=== PATIENT | female | born 1990 | race Caucasian/White ===

== ENCOUNTER 2016-07-13 13:41 | Emergency (ER) | payer OTHER ==
[~2016-07-13] VITALS: Ht 157.5 cm; Wt 75.0 kg
[2016-07-13 13:42] VITALS: BP 119/73; PULSE 104; RESP 16; TEMP 97.8; O2SAT 100
[2016-07-13] MEDS ORDERED: QUET1TAB10 PO (14:13)
[2016-07-13] MEDS ORDERED: AMPHETAMINE PO (14:13)
[2016-07-13] MEDS ORDERED: QUET5TAB PO (14:13)
[2016-07-13] MEDS ORDERED: BUSP30TA PO (14:13)
[2016-07-13] MEDS ORDERED: XANA1TAB2 PO (14:13)
[2016-07-13] MEDS ORDERED: RISP1TAB2 PO (14:13)
[2016-07-13] MEDS ORDERED: OXYC1TAB36 PO (14:13)
--- NOTE | 2016-07-13 14:19 | PD ---
HPI Chief Complaint: Medication Refill Request Time Seen by Provider: 14:16 Travel History International Travel<30 days: No Contact w/Intl Traveler<30days: No Traveled to known affect area: No History of Present Illness HPI 26-year-old female presents to the emergency department requesting medication refills on psych medications for ADHD, depression, anxiety. She is also requesting Percocet refill for chronic back pain. She just moved from [facility] and her insurance does not take effect until July 28. She has an appointment with [facility] after her insurance takes effect but will run out of her medications tomorrow. She denies suicidal or homicidal ideations. Denies hallucinations. Has no emergent medical complaints. Denies chest pain, shortness breath, abdominal pain, nausea, vomiting, change in urine or stool. Does not have an established primary care provider. No other modifying factors or associated signs and symptoms. PFSH Past Medical History ?: Not Social History Tobacco Use: No Allergies-Medications (Allergen,Severity, Reaction): Coded Allergies: No Known Allergies (Unverified , 07/13/16) Reported Meds & Prescriptions Reported Meds & Active Scripts Active Reported Oxycodone-Acetaminophen 10-325 mg Tab 1 Tab PO Q4H PRN [amphetamine] 40 Mg PO BID Xanax (Alprazolam) 1 Mg Tab 1 Mg PO Q8H PRN Risperidone 1 Mg Tab 1 Mg PO Q12HR Buspirone (Buspirone HCl) 30 Mg Tab 30 Mg PO BID Quetiapine (Quetiapine Fumarate) 300 Mg Tab 300 Mg PO HS Quetiapine (Quetiapine Fumarate) 50 Mg Tab 50 Mg PO BID Review of Systems Except as stated in HPI: all other systems reviewed are Neg Physical Exam Narrative GENERAL: Well-nourished, well-developed female patient, in no acute distress SKIN: Warm and dry. HEAD: Atraumatic. Normocephalic. EYES: Pupils equal and round. ENT: Mucosa pink and moist. NECK: Supple. Trachea midline. CARDIOVASCULAR: Regular rate and rhythm. No murmur appreciated. 3+ radial pulses. RESPIRATORY: No accessory muscle use. Clear to auscultation. Breath sounds equal bilaterally. GASTROINTESTINAL: Abdomen soft, non-tender, nondistended. Hepatic and splenic margins not palpable. Bowel sounds are active 4 quadrants. MUSCULOSKELETAL: No obvious deformities. No clubbing. No cyanosis. No edema. NEUROLOGICAL: Awake and alert. Oriented 3. No obvious cranial nerve deficits. Motor grossly within normal limits. Normal speech. Moves all extremities. 5/5 strength to all extremities. PSYCHIATRIC: No delusional thought processes. No hallucinations. Data Data Last Documented VS Vital Signs Date Time Temp Pulse Resp B/P Pulse Ox O2 Delivery O2 Flow Rate FiO2 07/13/16 13:42 97.8 104 16 119/73 100 Room Air MDM Medical Decision Making Medical Screen Exam Complete: Yes Emergency Medical Condition: No Differential Diagnosis Medication refill, medical clearance, malingering, psych evaluation Narrative Course 26-year-old female presents for medication refills for ADHD, depression, anxiety , and chronic back pain. She has no emergent medical complaints. Physical exam is unremarkable. Heart rate recheck on physical exam is presently 90 bpm. She we'll run out of her medications tomorrow. She denies suicidal or homicidal ideations. Denies hallucinations. She was told by [facility] to come to the emergency department. The option was given for the patient be seen by psych voluntarily and she declined. Vital signs are stable and the patient is stable for outpatient follow-up and treatment. The patient has no urgent or emergent medical complaints. There is no emergent or urgent medical need at this time. I instructed the patient to follow up with [facility] primary care provider. A medical screening exam was performed: At the time of evaluation the presenting medical condition was determined not to be of an emergent nature. The patient was given the option of receiving additional care, but declined. Patient was given options for additional community resources from which to obtain care. The Patient Has Been advised to seek medical attention for their presenting complaint. The patient has been advised to return to the ER at any time if an emergent condition develops. Diagnosis Primary Impression: Encounter for medical screening examination Condition: Stable Shira Milner Jul 13, 2016 14:19
== END 2016-07-13 14:42 | disposition left against medical advice (07) ==
LOC: NEPB 13:41
DX: F41.8 Other specified anxiety disorders (principal); F90.9 Attention-deficit hyperactivity disorder, unspecified type; Z76.0 Encounter for issue of repeat prescription
CPT/HCPCS: 99281

== ENCOUNTER 2016-08-03 07:56 | Emergency (ER) | payer OTHER ==
[~2016-08-03] VITALS: Ht 157.5 cm; Wt 75.0 kg
[~2016-08-03 07:56] MED LIST: AMPHETAMINE PO; BUSP30TA PO; OXYC1TAB36 PO; QUET1TAB10 PO; QUET5TAB PO; RISP1TAB2 PO; XANA1TAB2 PO
[2016-08-03 07:59] VITALS: BP 116/60; PULSE 74; RESP 15; TEMP 97.9; O2SAT 98
--- NOTE | 2016-08-03 08:10 | PD ---
HPI . left knee pain Chief Complaint: Pain: Acute or Chronic Time Seen by Provider: 08:17 Travel History International Travel<30 days: No Contact w/Intl Traveler<30days: No Traveled to known affect area: No History of Present Illness HPI 26-year-old female here with complaints of left knee pain. Patient tells me that she was at work yesterday and somehow slipped and fell to her left knee. She is reporting pain 8/10 without any radiation. She reports difficulty extending the knee. She does have some point tenderness over the patella. There is very minimal edema or ecchymosis. PFSH Past Medical History ?: Not LMP: now Social History Tobacco Use: No Allergies-Medications (Allergen,Severity, Reaction): Coded Allergies: No Known Allergies (Unverified , 08/03/16) Reported Meds & Prescriptions Reported Meds & Active Scripts Active Reported Adderall (Amphetamine-Dextroamphetamine) 30 Mg Tab 30 Mg PO DAILY Avoid late evening doses. Space doses at least 4 to 6 hours if more than once/day dosing. Review of Systems General / Constitutional: No: Fever Eyes: No: Visual changes HENT: No: Headaches Cardiovascular: No: Chest Pain or Discomfort Respiratory: No: Shortness of Breath Gastrointestinal: No: Abdominal Pain Genitourinary: No: Dysuria Musculoskeletal: Positive: Pain (left knee pain) Skin: No Rash Neurologic: No: Weakness Psychiatric: No: Depression Endocrine: No: Polydipsia Hematologic/Lymphatic: No: Easy Bruising Physical Exam Narrative GENERAL: AAO x 3, no acute distress, Well-nourished, well-developed patient. SKIN: Warm and dry. No visible rashes or bruising. abrasions on b/l knee. R>L HEAD: Normocephalic and atraumatic. EYES: No scleral icterus. No injection or drainage. ENT: No nasal drainage noted. Mucous membranes pink. Airway patent. NECK: Supple, trachea midline. No JVD. CARDIOVASCULAR: Regular rate and rhythm without murmurs, gallops, or rubs. RESPIRATORY: Breath sounds equal bilaterally. No accessory muscle use. No rhonchi or rales. GASTROINTESTINAL: Abdomen soft, non-tender, nondistended. EXTREMITIES: No cyanosis or edema. NO edema or ecchymosis.left knee: Valgus and vargus stress test produce pain. Joint is stable without any laxity. There is pain with extension. Active ROM is reduced. Passive ROM is also reduced BACK: Nontender without obvious deformity. No CVA tenderness. PSYCH: AAO x 3, normal affect. Data Data Last Documented VS Vital Signs Date Time Temp Pulse Resp B/P Pulse Ox O2 Delivery O2 Flow Rate FiO2 08/03/16 07:59 97.9 74 15 116/60 98 Orders Ketorolac Inj (Toradol Inj) (08/03/16 08:30) Knee, Complete (4vws) (08/03/16 08:20) Ed Urine Pregnancytest Poc (08/03/16 08:20) ^ Link Bandage (08/03/16 08:56) Crutches (08/03/16 08:56) MDM Medical Decision Making Medical Screen Exam Complete: Yes Emergency Medical Condition: Yes Medical Record Reviewed: Yes (07/13/16 MSE: requesting pain meds) Differential Diagnosis knee sprain, internal derangement of the knee, less likely knee fracture Narrative Course 26-year-old female here with complaints of left knee pain. Patient tells me that she was at work yesterday and somehow slipped and fell to her left knee. She is reporting pain 8/10 without any radiation. She reports difficulty extending the knee. She does have some point tenderness over the patella. There is no edema or ecchymosis. She does have a small abrasion over the left patella and a larger abrasion over the right patella. Patient seen and examined. She does have some tenderness of the left knee. She has pain elicited with extension. I recommend an x-ray to rule out any type of acute fracture or bony abnormality. I do not suspect dislocation or knee fracture. Xray negative for fracture, small joint effusion. Patient likely has a small sprain. Will provide Link wrap and crutches. She continues ibuprofen for pain and inflammation. If symptoms persist past 7-10 days, she will need to follow-up with primary care provider. Patient verbalized understanding of instructions, questions were answered, and thanked me for their care. I advised them if their condition worsens, please return to the nearest emergency room for further care. Diagnosis Primary Impression: Left knee sprain Qualified Code: S83.92XA - Sprain of left knee, unspecified ligament, initial encounter Additional Impression: Knee effusion, left Patient Instructions: General Instructions, Knee Sprain (ED) Departure Forms: Tests/Procedures, Work Release Enter return to work date: Aug 06, 2016 Additional Instructions: Please return to emergency department if your symptoms return or worsen. Follow up with your primary care provider. Take medications as prescribed. Rest the affected area as much as possible. Ice this area for 15-20 minutes at a time. You can do this every hour or as much as tolerated. Keep this area compressed (link bandage) as tolerated. Elevate this area. Use ibuprofen as needed for pain and inflammation. Use crutches for the next 3-5 days. Scripts Ibuprofen 800 Mg [id number] Mg PO TID #21 TAB Prov:Brian Cortes MD 08/03/16 Disposition: 01 DISCHARGE HOME Condition: Stable Niru Babcock Aug 03, 2016 08:10
[2016-08-03] MEDS ORDERED: ADDE30TA PO (08:11)
[2016-08-03] MEDS ORDERED: KETOROLAC TROMETHAMINE 60 MG/2 ML (IM) VIAL IM ONE (08:30)
--- NOTE | 2016-08-03 08:54 | RADRPT ---
EXAM DATE/TIME: 08/03/2016 08:47 [facility] COMPARISON: No previous studies available for comparison. INDICATIONS : Fall, complains of left knee pain. MEDICAL HISTORY : None. SURGICAL HISTORY : None. ENCOUNTER: Initial ACUITY: 1 day PAIN SCORE: 8/10 LOCATION: Left knee FINDINGS: Four view examination of the left knee demonstrates no evidence of fracture or dislocation. Bony min eralization is normal. The articular surfaces are intact. Small joint effusion is noted. The supra patellar soft tissues have a normal configuration. CONCLUSION: Small joint effusion otherwise negative. Jose L Branham MD FACR on August 03, 2016 at 8:51 Board Certified Radiologist. This report was verified electronically.
[2016-08-03] MEDS ORDERED: IBUP800T23 PO (08:57)
== END 2016-08-03 09:26 | disposition home or self-care (01) ==
LOC: NEPK 07:56
DX: S83.92XA Sprain of unspecified site of left knee, initial encounter (principal); M25.462 Effusion, left knee; W01.0XXA Fall on same level from slipping, tripping and stumbling without subsequent striking against object, initial encounter; Y99.0 Civilian activity done for income or pay
CPT/HCPCS: 73564; 96372; 99283; E0113; J1885